=== PATIENT | female | born 1945 | race Caucasian/White ===

== ENCOUNTER 2016-10-06 12:39 | Emergency (ER) | payer OTHER ==
[~2016-10-06] VITALS: Ht 165.1 cm; Wt 68.5 kg
[~2016-10-06 12:39] MED LIST: ASPIRIN81 M4 PO; ATORVASTATIN CA20 M1 PO; DOXYCYCLINE HY100 M2 PO; ESCITALOPRAM OX20 MG PO; NAMZARIC 28 MG1 EACH PO; OMEPRAZOLE20 M2 PO
--- NOTE | 2016-10-06 13:11 | ED AMS/SEIZURE/WEAK/DIZZY ---
History of Present Illness General Chief Complaint: Altered Mental Status Stated Complaint: AMS Source: patient, family Exam Limitations: no limitations Vital Signs & Intake/Output Vital Signs & Intake/Output Vital Signs Date Time Temp Pulse Resp B/P Pulse O2 O2 Flow FiO2 Ox Delivery Rate 10/06 1457 49 18 138/63 98 Room Air 10/06 1318 99 Room Air 10/06 1248 98.0 55 18 145/74 99 Room Air Allergies Coded Allergies: kiwi (Intermediate, ITCHY THROAT 04/17/16) hazelnut (ITCHY THROAT 04/17/16) Reconcile Medications Aspirin (Aspirin*) 81 MG TAB.CHEW 1 TAB PO DAILY HEART (Reported) Atorvastatin Calcium 20 MG TABLET 1 TAB PO DAILY HLD (Reported) Doxycycline Hyclate 100 MG CAPSULE 1 TAB PO BID LYME Escitalopram Oxalate 20 MG TABLET 1 TAB PO DAILY ANXIETY (Reported) Omeprazole 20 MG CAPSULE.DR 1 CAP PO DAILY AC GERD Triage Note: PT TO ED FOR WORSENING CONFUSION X3 DAYS, SIB BY DR MCCORD AT [facility], URINALYSIS +LEUKOCYTES AT [facility]. STATING "THE PAST COUPLE DAYS SHES BEEN EXTRA, EXTRA, EXTRA CONFUSED". PT DENIES ANY PAIN, ONLY MEDICAL COMPLAINT IS PT HAS BEEN MORE CONFUSED. Triage Nurses Notes Reviewed? yes Onset: Gradual Duration: intermittent Timing: recent history Severity: moderate Severity Numbers: 5 HPI: Patient is a 71-year-old female with a past medical history of Alzheimer's dementia, hypertension who presents to emergency room with with concerns of a gradual onset of altered mental status compared to normal baseline in which he states that the confusion persist during the day and is better at night and is concerned of infection where patient has been evaluated multiple occasions with urinary tract infections with the source of patient's confusion. Patient was evaluated at urgent care facility and was advised to present to the emergency room. Currently patient is asymptomatic and denies any abdominal pain dysuria hematuria nausea vomiting back pain cough chest pain is without complaints. states that there has been no focal neurological deficit. (LUKAS ALEGRIA) Past History Travel History Traveled to [place] past 21 day No Medical History Any Pertinent Medical History? 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 FH: myocardial infarction MOTHER, , Age 60+; Cause: Old age, dementia. FH: Alzheimers disease Hx Contributory? No (LUKAS ALEGRIA) Review of Systems Review of Systems Constitutional: Reports: no symptoms. EENTM: Reports: no symptoms. Respiratory: Reports: no symptoms. Cardiovascular: Reports: no symptoms. GI: Reports: no symptoms. Genitourinary: Reports: no symptoms. Musculoskeletal: Reports: no symptoms. Skin: Reports: no symptoms. Neurological/Psychological: Reports: no symptoms. Hematologic/Endocrine: Reports: no symptoms. Immunologic/Allergic: Reports: no symptoms. All Other Systems: Reviewed and Negative (LUKAS ALEGRIA) Physical Exam Physical Exam General Appearance: no apparent distress Comments: Well-developed well-nourished person in no acute distress HEENT: Normal EENT exam, extraocular motion intact, no nystagmus. Pupils equally round and reactive to light and accommodation. Nose is atraumatic. External auditory canal and Tympanic membranes clear. Pharynx normal. No swelling or edema. Neck: Supple, no lymphadenopathy, normal range of motion without pain or tenderness Back: Nontender, no CVA tenderness. Cardiovascular: Regular rate and rhythms no murmurs rubs or gallops, normal JVP Respiratory: Chest nontender. No respiratory distress.breath sounds clear to auscultation bilaterally Abdomen: Soft, nontender nondistended, no appreciable organomegaly. Normal bowel sounds. No ascites Extremity: No edema, no calf tenderness to palpation, normal and equal pulses. Neuro: Alert motor sensory normal, cranial nerves II through XII grossly intact. Skin: No appreciable rash on exposed skin, skin is warm and dry. Psych: Mood and affect is normal, memory and judgment is normal. Core Measures ACS in differential dx? No CVA/TIA Diagnosis: No Severe Sepsis Present: No Septic Shock Present: No (LUKAS ALEGRIA) Progress Differential Diagnosis: arrythmia, alcohol intoxication, anemia, benign positional vertigo, CVA/stroke, dehydration, drug intoxication, encephalitis, electrolyte imbalance, GI bleed, hypoglycemia, hypoxia, intracranial Hem., intracranial mass/tumor, labrynthitis, meningitis, Meniere's disease, migraine MARES, multiple sclerosis, pneumonia, postural hypotension, presyncope, post- traumatic vertigo, sepsis, seizure disorder, subarachnoid Hem., UTI/pyelo, vertebrobasilar insuff Plan of Care: Orders Procedure Date/time Status COMPREHENSIVE METABOLIC PANEL 10/06 1325 Complete CBC WITHOUT DIFFERENTIAL 10/06 1325 Complete CULTURE,URINE 10/06 1313 Active URINE DRUG SCREEN FOR ER ONLY 10/06 1313 Complete URINALYSIS 10/06 1313 Complete Laboratory Tests 10/06/16 1335: Anion Gap 9, Estimated GFR > 60, BUN/Creatinine Ratio 28.8 H, Glucose 90, Calcium 9.1, Total Bilirubin 1.0, AST 31, ALT 46, Alkaline Phosphatase 86, Total Protein 6.9, Albumin 4.1, Globulin 2.8, Albumin/Globulin Ratio 1.5, CBC w Diff NO MAN DIFF REQ, RBC 4.30, MCV 94.0, MCH 31.1 H, RDW 13.8, MPV 8.3, Gran % 64.7 , Lymphocytes % 25.1, Monocytes % 8.5, Eosinophils % 1.2, Basophils % 0.5, Absolute Granulocytes 5.0, Absolute Lymphocytes 1.9, Absolute Monocytes 0.7 H, Absolute Eosinophils 0.1, Absolute Basophils 0, PUBS MCHC 33.1 10/06/16 1320: Urine Opiates Screen < 100.00, Methadone Screen 54, Barbiturate Screen < 60, Ur Phencyclidine Scrn < 6.00, Amphetamines Screen < 100, U Benzodiazepines Scrn < 85, Urine Cocaine Screen < 50, Urine Cannabis Screen < 5.00, Urine Color YEL, Urine Clarity CLEAR, Urine pH 6.0, Ur Specific [place] >= 1.030, Urine Protein NEG, Urine Ketones NEG, Urine Nitrite NEG, Urine Bilirubin NEG, Urine Urobilinogen 0.2, Ur Leukocyte Esterase NEG, Ur Microscopic EXAM NOT REQUIRED, Urine Hemoglobin NEG, Urine Glucose NEG Microbiology 10/06 1319 URINE ROUT: Urine Culture - RECD Patient currently is afebrile nontoxic appearing and has unremarkable physical exam findings clear lungs to auscultation cranial nerves intact no neurological deficits nontender abdomen no CVA tenderness. Patient has unremarkable blood work and urinalysis however cultures pending. At this time due to history of present illness and exam findings there is likelihood of exacerbation of dementia which I discussed disposition plan with family members and patient and they will comply and had no questions. Discussed disposition plan with Dr. AC who agrees (LUKAS ALEGRIA) Initial ED EKG: none (LUKAS ALEGRIA) Departure Departure Disposition: HOME OR SELF CARE Condition: Stable Clinical Impression Primary Impression: Dementia Referrals: ADRIEL KHAN,TEX Morin (PCP/Family) Additional Instructions: As discussed continue home medications as directed. If symptoms worsen or if RENU develops new concerning symptom return to emergency room immediately. Follow-up with doctor on Friday if symptoms do not improve. Departure Forms: Customer Survey General Discharge Information (LUKAS ALEGRIA) PA/AGENCY SERVICE REPRESENTATIVE Co-Sign Statement Statement: ED Attending supervision documentation- x I saw and evaluated the patient. I have also reviewed all the pertinent lab results and diagnostic results. I agree with the findings and the plan of care as documented in the PA's/AGENCY SERVICE REPRESENTATIVE's documentation. [] I have reviewed the ED Record and agree with the PA's/AGENCY SERVICE REPRESENTATIVE's documentation. [] Additions or exceptions (if any) to the PAs/AGENCY SERVICE REPRESENTATIVE's note and plan are summarized below: [] (OSORIO KHAN,LOLA)
[2016-10-06 13:53] LABS: ABSOLUTE BASOPHIL COUNT 0 /CUMM (0.0-0.2); ABSOLUTE EOSINOPHIL COUNT 0.1 /CUMM (0.0-0.7); ABSOLUTE LYMPH COUNT 1.9 /CUMM (1.2-3.4); ABSOLUTE MONOCYTE COUNT 0.7 /CUMM (0.10-0.60); BASOPHIL % 0.5 % (0.0-2.0); EOSINOPHIL % 1.2 % (0-5); GRANULOCYTE % 64.7 % (42.2-75.2); HEMATOCRIT 40.5 % (37-47); MEAN CORPUSCULAR HGB 31.1 PG (27.0-31.0); MEAN CORPUSCULAR HGB CONC 33.1 G/DL (33.0-37.0); MEAN PLATELET VOLUME 8.3 FL (7.4-10.4); PLATELET COUNT 216 /CUMM (130-400); RBC DISTRIBUTION WIDTH 13.8 % (11.5-14.5); WHITE BLOOD CELL COUNT 7.7 /CUMM (4.8-10.8)
[2016-10-06 14:57] VITALS: BP 138/63
== END 2016-10-06 14:59 ==
LOC: ERH 12:39
PROVIDERS: Physician Assistant
DX: F03.90 Unspecified dementia, unspecified severity, without behavioral disturbance, psychotic disturbance, mood disturbance, and anxiety (principal); R51 Headache
CPT/HCPCS: 80307; 81003; 87086

== ENCOUNTER 2017-01-03 19:01 | Emergency (ER) | payer OTHER ==
[~2017-01-03] VITALS: Ht 165.1 cm; Wt 70.3 kg
[2017-01-03 19:33] LABS: ABSOLUTE BASOPHIL COUNT 0.1 /CUMM (0.0-0.2); ABSOLUTE EOSINOPHIL COUNT 0.1 /CUMM (0.0-0.7); ABSOLUTE GRANULOCYTE CT 6.1 /CUMM (1.4-6.5); ABSOLUTE LYMPH COUNT 1.6 /CUMM (1.2-3.4); ABSOLUTE MONOCYTE COUNT 0.8 /CUMM (0.10-0.60); BASOPHIL % 0.7 % (0.0-2.0); EOSINOPHIL % 0.9 % (0-5); GRANULOCYTE % 70.6 % (42.2-75.2); HEMATOCRIT 39.4 % (37-47); MEAN CORPUSCULAR HGB 31.2 PG (27.0-31.0); MEAN CORPUSCULAR HGB CONC 33.3 G/DL (33.0-37.0); MEAN CORPUSCULAR VOLUME 93.7 FL (81.0-99.0); MEAN PLATELET VOLUME 7.7 FL (7.4-10.4); PLATELET COUNT 224 /CUMM (130-400); RBC DISTRIBUTION WIDTH 13.5 % (11.5-14.5); RED BLOOD CELL CT 4.21 /CUMM (4.20-5.40); WHITE BLOOD CELL COUNT 8.7 /CUMM (4.8-10.8)
--- NOTE | 2017-01-03 21:09 | ED GI/GU/ABDOMINAL COMPLAINT ---
History of Present Illness General Chief Complaint: Female Urogenital Problems Stated Complaint: UTI? Source: patient Exam Limitations: dementia, poor historian Vital Signs & Intake/Output Vital Signs & Intake/Output Vital Signs Date Time Temp Pulse Resp B/P B/P Pulse O2 O2 Flow FiO2 Mean Ox Delivery Rate 01/03 2115 98.9 68 18 128/63 97 01/03 1908 99.1 64 15 134/79 95 Room Air Room Air Allergies Coded Allergies: kiwi (Intermediate, ITCHY THROAT 01/03/17) hazelnut (ITCHY THROAT 01/03/17) Reconcile Medications Aspirin (Aspirin*) 81 MG TAB.CHEW 1 TAB PO DAILY HEART (Reported) Atorvastatin Calcium 20 MG TABLET 1 TAB PO DAILY HLD (Reported) Cephalexin (Keflex) 500 MG CAPSULE 1 CAP PO TID urine inf Doxycycline Hyclate 100 MG CAPSULE 1 TAB PO BID LYME Escitalopram Oxalate 20 MG TABLET 1 TAB PO DAILY ANXIETY (Reported) Omeprazole 20 MG CAPSULE.DR 1 CAP PO DAILY AC GERD Triage Note: PT TO ED FOR C/C OF ?UTI. PT WAS SEEN AT [facility] AND HAD UA DONE AND RESULTS SHOWED MODERATE AMOUNT OF BLOOD IN URINE (RESULTS WITH PT) AND SOME RUQ TENDERNESS. PT DENIES BURNING WITH URINATION. HX OF DEMENTIA AND ALZHEIMERS AND REPORTS INCREASED CONFUSION MORE THAN USUAL DURING THE DAY. LOW GRADE FEVER IN TRIAGE 99.1. Triage Nurses Notes Reviewed? yes ? N Is pt currently ? No HPI: Ms. De La Rosa is a 71 yo f w/ PMH anxiety, hyperlipidemia and Alzheimer's dementia presenting to the emergency department for confusion. Patient's states that yesterday she was significantly more confused than baseline. She normally does have some sun Wisner at 90 however she was more confused during the day and this is all from her baseline. Today she is slightly improved however she slept in an feels that she slightly more lethargic. Patient denies any complaints. She denies any chest pain, abdominal pain, nausea, vomiting, diarrhea. She also denies increased urinary frequency or dysuria. However, the patient has severe Alzheimer's and states she will deny most things. On a previous episode confusion, she had a UTI. He took her to the urgent care today where they noted that she had a significant amount of blood in her urine however they were unsure if she had a UTI so they referred her here to the ED. Past History Travel History Traveled to [place] past 21 day No Medical History Any Pertinent Medical History? 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 FH: myocardial infarction MOTHER, , Age 60+; Cause: Old age, dementia. FH: Alzheimers disease Hx Contributory? Yes Review of Systems Review of Systems Constitutional: Reports: see HPI. Comments Review of systems: See HPI. All other systems negative. Constitutional: No chills, fever or weight loss HEENT: No visual changes, no sore throat, no congestion Cardiovascular: No chest pain, palpitations, orthopnea or ankle swelling Skin: no jaundice, no rashes Respiratory: No dyspnea, cough, sputum or hemoptysis GI: No nausea, vomiting or abdominal pain. No diarrhea. : No dysuria No hematuria Musculoskeletal: no back pain, no neck pain Neurologic: No numbness no confusion Psych: No anxiety or depression. Heme/endocrine: No bruising, no bleeding, no polyuria or polydipsia Immunology: No splenectomy or history of AIDS Physical Exam Physical Exam General Appearance: well developed/nourished, no apparent distress, alert, awake , comfortable Head: atraumatic, normal appearance Eyes: Bilateral: normal appearance, PERRL, EOMI, normal inspection. Ears, Nose, Throat, Mouth: hearing grossly normal Neck: normal inspection, supple, full range of motion Respiratory: normal breath sounds Cardiovascular: regular rate/rhythm Gastrointestinal: normal bowel sounds, soft, non-tender, no CVA tenderness bilaterally Rectal: deferred Back: normal inspection, normal range of motion Extremities: normal range of motion Neurologic/Psych: no motor/sensory deficits, awake, alert, sugar laboratory assistant II-XII nml as tested Skin: intact, normal color, warm/dry Core Measures ACS in differential dx? No Severe Sepsis Present: No Septic Shock Present: No Progress Differential Diagnosis: cholecystitis, kidney stone, PID/cervicitis, UTI/pyelo, pneumonia, worsening Alzheimer's, sepsis (unlikely) Plan of Care: Orders Procedure Date/time Status URINALYSIS 01/04 1916 Complete TROPONIN LEVEL 01/03 1913 Complete LIPASE 01/03 1913 Complete COMPREHENSIVE METABOLIC PANEL 01/03 1913 Complete CBC WITHOUT DIFFERENTIAL 01/03 1913 Complete AMYLASE 01/03 1913 Complete EKG 01/03 1913 Active Current Medications Sig/Jahaira Start time Last Medication Dose Stop Time Status Admin Cephalexin 500 MG ONCE ONE 01/03 2230 AC (Keflex) 01/03 2231 Laboratory Tests 01/03/172058: Urine Color YEL, Urine Clarity CLEAR, Urine pH 6.0, Ur Specific [place] >= 1.030 , Urine Protein 30 H, Urine Ketones NEG, Urine Nitrite NEG, Urine Bilirubin NEG , Urine Urobilinogen 1.0, Ur Leukocyte Esterase TRACE H, Ur Microscopic SEDIMENT EXAMINED, Urine RBC RARE, Urine WBC 1-3 H, Ur Epithelial Cells FEW, Urine Bacteria MOD H, Urine Hemoglobin NEG, Urine Glucose NEG 01/03/171925: Anion Gap 9, Estimated GFR > 60, BUN/Creatinine Ratio 36.3 H, Glucose 100 H, Calcium 9.0, Total Bilirubin 0.8, AST 29, ALT 48, Alkaline Phosphatase 83, Troponin I < 0.01, Total Protein 7.0, Albumin 4.3, Globulin 2.7, Albumin/ Globulin Ratio 1.6, Amylase 50, Lipase 262, CBC w Diff NO MAN DIFF REQ, RBC 4.21 , MCV 93.7, MCH 31.2 H, RDW 13.5, MPV 7.7, Gran % 70.6, Lymphocytes % 18.6 L, Monocytes % 9.2, Eosinophils % 0.9, Basophils % 0.7, Absolute Granulocytes 6.1, Absolute Lymphocytes 1.6, Absolute Monocytes 0.8 H, Absolute Eosinophils 0.1, Absolute Basophils 0.1, PUBS MCHC 33.3 Patient is generally well-appearing. Only oriented to self. Has been endorses increased confusion and lethargy yesterday. Today patient has been more at her baseline. Previous similar episodes with previous UTIs. Patient is unable to provide much history given her severe Alzheimer's. Labs and urine were sent from the waiting room. Blood work is otherwise unremarkable. UA shows trace leukocyte esterase, moderate bacteria with few epis. Only 1-3 white blood cells noted in the UA however given the confusion and low-grade fever 99.1. We will administer 3 day course of Keflex. Has been instructed to take the patient to her primary care doctor on Friday or Friday for follow-up. is also given return precautions. (PRANAY KHAN,KEKE) Initial ED EKG: normal axis, normal intervals, normal p-waves, NSR Departure Departure Time of Disposition: 2217 Disposition: HOME OR SELF CARE Condition: Stable Clinical Impression Primary Impression: UTI (urinary tract infection) Qualifiers: Urinary tract infection type: site unspecified Hematuria presence: without hematuria Qualified Code: N39.0 - Urinary tract infection, site not specified Referrals: ADRIEL KHAN,TEX Morin (PCP/Family) Additional Instructions: Please take the antibiotics for the next 3 days. Do not skip any doses. If you develop fever, chills, double pain, unable to sleep down food, worsening confusion, back pain or any other concerning symptoms, please return to the emergency department for further evaluation. Please follow-up with your primary care doctor in a few days. Departure Forms: Customer Survey General Discharge Information Prescriptions: Current Visit Scripts Cephalexin (Keflex) 1 CAP PO TID #9 CAP
[2017-01-03] MEDS ORDERED: KEFLEX500 M1 PO (22:21)
[2017-01-03 22:38] VITALS: BP 130/58
== END 2017-01-03 22:39 ==
LOC: ERH 19:01
PROVIDERS: Emergency Medicine
DX: N39.0 Urinary tract infection, site not specified (principal); G30.9 Alzheimer's disease, unspecified
CPT/HCPCS: 81001; 93005; 93010